=== PATIENT | male | born 2000 | race Caucasian/White ===

== ENCOUNTER 2019-03-20 16:08 | Emergency (ER) | payer BC ==
--- NOTE | 2019-03-20 16:12 | UC ---
Throat Pain/Nasal Alf HPI - HPI Summary HPI Summary: 18 yo male presents with sore throat. He tells me that for the last 5 days he has had a sore throat. Today noticed white spots. Has had pain with swallowing and feels that his throat is swollen. He has not taken anything OTC for his symptoms. Denies fever, chills, sinus symptoms, cough, rash, abdominal pain, n/ v. States not concern for STIs today as last partner was a long time ago and they were tested and negative for STIs. He is eating, drinking, and tolerating po well - but does have some pain with swallowing. - History of Current Complaint Stated Complaint: SORE THROAT Time Seen by Provider: 03/20/19 16:11 Hx Obtained From: Patient Onset/Duration: Gradual Onset Severity: Moderate Pain Intensity: 7 Pain Scale Used: 0-10 Numeric - Allergies/Home Medications Allergies/Adverse Reactions: Allergies Allergy/AdvReac Type Severity Reaction Status Date / Time No Known Allergies Allergy Verified 03/20/19 16:18 PMH/Surg Hx/FS Hx/Imm Hx - Additional Past Medical History Additional PMH: None - Surgical History Surgical History: None - Family History Known Family History: Positive: None - Social History Occupation: Student Lives: With Family Alcohol Use: None Substance Use Type: None Smoking Status (MU): Never Smoked Tobacco Review of Systems All Other Systems Reviewed And Are Negative: No Constitutional: Positive: Negative Skin: Positive: Negative Eyes: Positive: Negative ENT: Positive: Sore Throat Respiratory: Positive: Negative Cardiovascular: Positive: Negative Gastrointestinal: Positive: Negative Neurological: Positive: Negative Psychological: Positive: Negative Physical Exam - Summary Physical Exam Summary: GENERAL: NAD. WDWN. No pain distress. SKIN: No rashes, sores, lesions, or open wounds. HEENT: Head: AT/NC Eyes: Conjunctiva clear without inflammation or discharge. Ears: Hearing grossly normal. TMs occluded by cerumen. Nose: Nasal mucosa pink and moist. NTTP maxillary and frontal sinus. Throat: Posterior oropharynx moderate erythema and 1+ tonsillar enlargement. LEFT palatopharyngeal arch and palatoglossal arch with white appearing exudates. Uvula midline. No hoarse voice or muffled voice. NECK: Supple. B/L anterior cervical and tonsillar LAD mildly ttp. CHEST: CTAB. No r/r/w. No accessory muscle use. Breathing comfortably and in no distress. CV: RRR.. Pulses intact. Cap refill <2seconds NEURO: Alert. PSYCH: Age appropriate behavior. Triage Information Reviewed: Yes Vital Signs: Vital Signs: Temp Pulse Resp BP Pulse Ox 97.3 F 74 18 128/59 99 03/20/19 16:14 03/20/19 16:14 03/20/19 16:14 03/20/19 16:14 03/20/19 16:14 Laboratory Tests 03/20/19 16:23 Group A Strep Rapid Negative Vital Signs Reviewed: Yes Throat Pain/Nasal Course/Dx - Course Course Of Treatment: POC strep negative. Will send for throat culture and treat with Augmentin at this time - Differential Dx/Diagnosis Provider Diagnosis: Sore throat Discharge ED - Sign-Out/Discharge Documenting (check all that apply): Patient Departure All imaging exams completed and their final reports reviewed: No Studies - Discharge Plan Condition: Stable Disposition: HOME Prescriptions: Amoxicillin/Clavulanate TAB* [Augmentin TAB 875*] 875 mg PO BID #14 tab Patient Education Materials: Strep Throat (ED) Referrals: Messi Vela MD [Primary Care Provider] - Additional Instructions: If you develop a fever, shortness of breath, chest pain, new or worsening symptoms - please call your PCP or go to the ED immediately. Please throat salt water gargles and tylenol/ibuprofen as directed for discomfort - Billing Disposition and Condition Condition: STABLE Disposition: Home - Attestation Statements Provider Attestation: I was available for consult. This patient was seen by the JESSI. The patient was not presented to, seen by, or examined by me. -Trina
[2019-03-20 16:18] VITALS: BP 128/59
== END 2019-03-20 16:47 | disposition home or self-care (01) ==
LOC: UCEAST 16:08
DX: J02.9 Acute pharyngitis, unspecified (principal)
CPT/HCPCS: 87070; 87651; 99202; G0463